=== PATIENT | female | born 1980 | race Hispanic/Latino ===

== ENCOUNTER 2017-06-07 22:40 | Observation (INO) | payer OTHER ==
[2017-06-07 22:51] VITALS: PULSE 90; RESP 16; TEMP 98.8; O2SAT 100
[2017-06-07] MEDS ORDERED: Sodium Chloride 0.9% 1,000 ML IV STA (23:06)
--- NOTE | 2017-06-07 23:14 | ED PDOC ---
HPI: Female Pain Time Seen by Provider: 06/07/17 23:02 Chief Complaint (Nursing): Abdominal Pain Chief Complaint (Provider): Pelvic pain History Per: Patient History/Exam Limitations: no limitations Onset/Duration Of Symptoms: Days (5pm) Current Symptoms Are (Timing): Still Present Additional Complaint(s): Pt. with pelvic pain across lower. Is stabbing pain. Is preg 7 wks. No dysuria, vaginal bleeding, back pain, nausea, vomit, chest pain. No weakness. No injury. Past Medical History Vital Signs: Last Vital Signs Temp 98.8 F 06/07/17 22:46 Pulse 90 06/07/17 22:46 Resp 16 06/07/17 22:46 BP 142/82 06/07/17 22:46 Pulse Ox 100 06/07/17 22:46 - Medical History Other PMH: thyroid goiter - Surgical History Surgical History: Tonsillectomy Other surgeries: 1 - Family History Family History: States: Unknown Family Hx - Social History Current smoker - smoking cessation education provided: No Alcohol: None Drugs: Denies - Allergies Allergies/Adverse Reactions: Allergies Allergy/AdvReac Type Severity Reaction Status Date / Time erythromycin base Allergy VOMITING Verified 06/07/17 22:49 Review of Systems ROS Statement: Except As Marked, All Systems Reviewed And Found Negative Genitourinary Female: Positive for: Pelvic Pain Physical Exam - Reviewed Nursing Documentation Reviewed: Yes Vital Signs Reviewed: Yes - Physical Exam Appears: Positive for: Non-toxic, No Acute Distress Head Exam: Positive for: ATRAUMATIC, NORMAL INSPECTION, NORMOCEPHALIC Skin: Positive for: Normal Color, Warm, DRY Eye Exam: Positive for: EOMI, Normal appearance, PERRL ENT: Positive for: Normal ENT Inspection Neck: Positive for: Normal, Painless ROM Cardiovascular/Chest: Positive for: Regular Rate, Rhythm Respiratory: Positive for: CNT, Normal Breath Sounds Gastrointestinal/Abdominal: Positive for: Bowel Sounds, Soft, Tenderness (mild across lower) Back: Positive for: Normal Inspection. Negative for: L CVA Tenderness, R CVA Tenderness Extremity: Positive for: Normal ROM Neurologic/Psych: Positive for: Alert, Oriented - ECG O2 Sat by Pulse Oximetry: 100 Pulse Ox Interpretation: Normal - Progress ED Course And Treament: 2327: Stable. AAOx3. Will obs pt. Pt. does not want TV US. Will do pelvic US. Dr. Trujillo to take over care. ED OBSERVATION Date of observation admission: 06/07/17 Time of observation admission: 23:27 - Observation admission statement Patient is being placed in observation because:: Pelvic pain - Goals of Observation Goals of observation are:: pain eval Disposition - Clinical Impression Clinical Impression: Threatened - Patient ED Disposition Is Patient to be Admitted: Transfer of Care - Disposition Disposition: Transfer of Care Disposition Time: 23:28 Condition: STABLE Patient Signed Over To: Alessio Trujillo
[2017-06-07 23:35] LABS: SQUAMOUS EPITHIAL 1 /hpf (0-5); URINE BACTERIA OCC (<OCC); URINE BILIRUBIN NEGATIVE (NEGATIVE); URINE BLOOD NEGATIVE (NEGATIVE); URINE CLARITY CLEAR (Clear); URINE COLOR STRAW (YELLOW); URINE GLUCOSE (UA) NEG (Normal); URINE LEUKOCYTE ESTERASE TRACE Leu/uL (Negative); URINE NITRATE NEGATIVE (NEGATIVE); URINE PROTEIN NEGATIVE (NEGATIVE); URINE UROBILINOGEN 0.2-1.0 mg/dL (0.2-1.0)
[2017-06-07 23:57] LABS: BLOOD UREA NITROGEN 9 mg/dl (7-17); CALCIUM 9.3 mg/dL (8.4-10.2); GFR AFRICAN-AMERICAN > 60; GFR NON-AFRICAN AMERICAN > 60
[2017-06-07 23:59] LABS: BASO # 0.1 K/uL (0.0-0.2); BASO % 0.7 % (0.0-2.0); EOS # 0.1 K/uL (0.0-0.7); EOS % 1.8 % (0.0-4.0); HEMOGLOBIN 12.6 g/dL (12.0-16.0); LYMPH # 2.5 K/uL (1.0-4.3); LYMPH % 32.9 % (20.0-40.0); MEAN CELL VOLUME 94.6 fl (81.0-99.0); MEAN CORPUSCULAR HEMOGLOBIN 31.3 pg (27.0-31.0); MEAN CORPUSCULAR HGB CONC 33.1 g/dL (33.0-37.0); MEAN PLATELET VOLUME 7.3 fl (7.2-11.7); MONO # 0.8 K/uL (0.0-0.8); MONO % 9.9 % (0.0-10.0); NEUT # 4.2 K/uL (1.8-7.0); NEUT % 54.7 % (50.0-75.0); RBC 4.02 Mil/uL (3.80-5.20); RED CELL DISTRIBUTION WIDTH 13.2 % (11.5-14.5); WHITE BLOOD COUNT 7.7 K/uL (4.8-10.8)
--- NOTE | 2017-06-08 00:16 | ED PDOC ---
- Laboratory Results Result Diagrams: 06/07/17 23:42 06/07/17 23:10 - ECG O2 Sat by Pulse Oximetry: 100 (RA) Pulse Ox Interpretation: Normal Medical Decision Making Medical Decision Making: Patient signed out to provider at [address] Gama pending pelvic ultrasound. CLINICAL HISTORY: 37 years old, female; Pain; complicated by abdominal or pelvic pain; Lower; First trimester; Gestational age or lmp: 04/15/2017; ; Additional info: Pain of TECHNIQUE: Real-time transabdominal obstetrical ultrasound of the maternal pelvis and a first trimester with image documentation. COMPARISON: No relevant prior studies available. FINDINGS: Gestation: Single live intrauterine gestation. heart rate of 143 beats per minute. [place]-rump length of 0.87 cm, correlating with gestational age of 6 weeks 6 days. Uterus/cervix: No subchorionic hemorrhage. No cervical dilatation or effacement. Several uterine masses, largest measuring 3.7 x 4.2 x 3.6 cm. Ovaries: Normal ovaries. No adnexal masses. Free fluid: No significant free fluid. IMPRESSION: 1. Single live intrauterine gestation. 2. Probable fibroid uterus. 3. Incidental/non-acute findings are described above. Thank you for allowing us to participate in the care of your patient. Dictated and Authenticated by: Gaudencio Godinez MD 06/08/2017 1:45 AM Eastern Time ([place] & [place] Scribe Attestation Documented by Jenny Castillo acting as a scribe for Alessio Trujillo. Provider Attestation: All medical record entries made by the Scribe were at my direction and personally dictated by me. I have reviewed the chart and agree that the record accurately reflects my personal performance of the history, physical exam, medical decision making, and the department course for this patient. I have also personally directed, reviewed, and agree with the discharge instructions and disposition. Disposition Doctor Will See Patient In The: Office Counseled Patient/Family Regarding: Studies Performed, Diagnosis, Need For Followup - Clinical Impression Clinical Impression: Threatened , Abdominal pain during - POA Present On Arrival: None - Disposition Disposition: Routine/Home Disposition Time: 02:11 Condition: GOOD
--- NOTE | 2017-06-08 01:45 | US ---
EXAM: US First Trimester, Transabdominal CLINICAL HISTORY: 37 years old, female; Pain; complicated by abdominal or pelvic pain; Lower; First trimester; Gestational age or lmp: 04/15/2017; ; Additional info: Pain of TECHNIQUE: Real-time transabdominal obstetrical ultrasound of the maternal pelvis and a first trimester with image documentation. COMPARISON: No relevant prior studies available. FINDINGS: Gestation: Single live intrauterine gestation. heart rate of 143 beats per minute. [place]-rump length of 0.87 cm, correlating with gestational age of 6 weeks 6 days. Uterus/cervix: No subchorionic hemorrhage. No cervical dilatation or effacement. Several uterine masses, largest measuring 3.7 x 4.2 x 3.6 cm. Ovaries: Normal ovaries. No adnexal masses. Free fluid: No significant free fluid. IMPRESSION: 1. Single live intrauterine gestation. 2. Probable fibroid uterus. 3. Incidental/non-acute findings are described above.
[2017-06-08 02:25] VITALS: BP 105/58
== END 2017-06-08 02:25 | disposition home or self-care (01) ==
LOC: H.ER 22:40 → H.EROBSV 23:26
PROVIDERS: ADMIT Emergency Medicine; ATTEND Emergency Medicine
DX: O20.0 Threatened abortion (principal); Z3A.01 Less than 8 weeks gestation of pregnancy; Z88.1 Allergy status to other antibiotic agents; E04.9 Nontoxic goiter, unspecified